=== PATIENT | female | born 1965 | race Caucasian/White ===

== ENCOUNTER → 2018-06-29 | Outpatient (CLI) | payer BC ==
[2016-07-15 14:54] VITALS: BP 92/53
[~2018-06-29] MED LIST: ACET325T9 PO; HYDR-2769 PO; IBUP-1007 PO; NAPR220C4 PO; WARF3TAB54 PO; [UNRECOGNIZED DRUG - OTHER]
--- NOTE | 2018-06-29 15:48 | EKG ---
[facility] [address] [place] [address] Test Date: 2018-06-29 Test Time: 15:55:47 Pat Name: WONG JOHNSON Department: Room: Gender: F [employer] Operator: FABI : 1965 Requested By: HELLEN GONZALEZ Order Number: [id number] Reading MD: Ba Jackson MD Measurements Intervals Olds Rate: 62 P: 47 VA: 146 QRS: 6 QRSD: 80 T: 35 QT: 412 QTc: 420 Interpretive Statements SINUS RHYTHM Electronically Signed On 06-29-2018 17:59:35 [employer] by Ba Jackson MD
[2018-06-29 15:54] LABS: BASO # 0.1 x10^3/uL (0.0-0.2); BASO % 1 % (0-3); EOS # 0.2 x10^3/uL (0.0-0.7); EOS % 3 % (0-3); HEMATOCRIT 39.7 % (36.0-47.0); HEMOGLOBIN 13.3 g/dL (12.0-15.5); LYMPH # 2.3 x10^3/uL (1.0-4.8); LYMPH % 34 % (24-48); MEAN CORPUSCULAR HEMOGLOBIN 31 pg (25-35); MEAN CORPUSCULAR HGB CONC 34 g/dL (31-37); MEAN CORPUSCULAR VOLUME 94 fL (79-100); MONO # 0.4 x10^3/uL (0.0-1.1); MONO % 6 % (0-9); NEUT # 3.7 x10^3uL (1.8-7.7); NEUT % 56 % (31-73); PLATELET COUNT 276 x10^3/uL (140-400); RED BLOOD COUNT 4.25 x10^6/uL (3.50-5.40); RED CELL DISTRIBUTION WIDTH 13.9 % (11.5-14.5); WHITE BLOOD COUNT 6.6 x10^3/uL (4.0-11.0)
[2018-06-29 16:15] LABS: PROTHROMBIN TIME PATIENT 13.6 SEC (11.7-14.0)
[2018-06-29 16:30] LABS: CALCIUM 9.5 mg/dL (8.5-10.1); CREATININE 0.9 mg/dL (0.6-1.0); GFR 66.3; POTASSIUM 4.2 mmol/L (3.5-5.1)
--- NOTE | 2018-06-29 16:34 | RAD ---
CHEST PA LATERAL dated 06/29/2018 3:10 PM. Comparison: 06/29/2016 Clinical Indication: Pre op Right total hip operation. Findings: PA and lateral views of the chest were obtained. Heart and mediastinal contours within normal limits. Lungs are clear without focal consolidation. Vascular interstitium within normal limits. No pleural effusion or pneumothorax. Impression: No acute radiographic abnormality. Electronically signed by: Darrius Almonte MD (06/29/2018 4:31 PM) [id number]
[2018-06-29 18:41] LABS: BILIRUBIN,URINE NEGATIVE (NEG); CLARITY,URINE CLEAR; COLOR,URINE YELLOW; NITRITE,URINE NEGATIVE (NEG); PH,URINE 6.5; PROTEIN,URINE NEGATIVE (NEG-TRACE); UROBILINOGEN,URINE 0.2 mg/dL (0.2 mg/dL)
[2018-06-29 18:54] LABS: BACTERIA,URINE 0 /HPF (0-FEW); RBC,URINE >40 /HPF (0-2); SQUAMOUS EPITHELIAL CELL,UR MOD /LPF; WBC,URINE 0 /HPF (0-4)
== END | disposition home or self-care (01) ==
LOC: SURGPAT 15:03
PROVIDERS: ATTEND Orthopaedic Surgery Sports Medicine
DX: Z01.818 Encounter for other preprocedural examination (principal); M16.11 Unilateral primary osteoarthritis, right hip
CPT/HCPCS: 36415; 71046; 80048; 81001; 85025; 85610; 85651; 85730; 87641; 93005